=== PATIENT | male | born 1955 | race Caucasian/White ===

== ENCOUNTER → 2017-12-18 15:22 | Outpatient (CLI) | payer OTHER, SELFPAY | PROVIDERS: Visit Provider Physician Assistant | DX: R21 Rash and other nonspecific skin eruption (principal) | CPT/HCPCS: 87220 ==

== ENCOUNTER → 2018-01-23 17:41 | Outpatient (REF) | payer OTHER, SELFPAY | LOC: LAB 17:41 | PROVIDERS: Visit Provider Dermatology | DX: L24.9 Irritant contact dermatitis, unspecified cause (principal) | CPT/HCPCS: 87070; 87075; 87147; 87205 ==

== ENCOUNTER 2018-02-25 07:55 | Emergency (ER) | payer OTHER, SELFPAY ==
[2018-02-25] MEDS: SODIUM CHLORIDE 0.9% 1,000 ML 1000 ML IV (08:00)
[2018-02-25 08:04] VITALS: BP 159/85; PULSE 105; RESP 22; TEMP 36.4; O2SAT 97; BMI 25.3
[2018-02-25 08:23] LABS: Add Manual Diff / Slide Review NO; Basophils Absolute Auto 0 /uL (0-100); Basophils Percent Auto 0.6 % (0-2); Eosinophils Absolute Auto 100 /uL (0-450); Eosinophils Percent Auto 1.4 % (2-4); Hematocrit 46.3 % (41-53); Hemoglobin 16.2 g/dL (13.5-17.5); Lymphocytes Absolute Auto 1700 /uL (1100-4500); Mean Corpuscular HGB Conc 35.1 % (30-36); Mean Corpuscular Hemoglobin 33.2 PG (26-34); Mean Corpuscular Volume 94.8 fL (80-100); Monocytes Absolute Auto 700 /uL (0-900); Monocytes Percent Auto 9.4 % (3-14); Neutrophils Absolute Auto 4800 /uL (1500-7000); Neutrophils Percent Auto 65.6 % (50-75); Platelet Count 137 X10^3/uL (150-400); Red Blood Cell Count 4.88 X10^6/uL (4.5-5.9); Red Cell Distribution Width 13.6 % (11.6-14.8); White Blood Cell Count 7.3 X10^3/uL (4.5-11.0)
[2018-02-25 08:35] LABS: Alanine Aminotransferase 59 IU/L (21-72); Albumin 4.4 g/dL (3.5-5.0); Albumin Globulin Ratio 1.4 (1.0-2.8); Alkaline Phosphatase 103 U/L (38-126); Aspartate Aminotransferase 119 IU/L (17-59); BUN Creatinine Ratio 4.3 (6-22); Bilirubin Total 1.4 mg/dL (0.2-1.3); Blood Urea Nitrogen 3 mg/dL (9-20); Calcium 8.9 mg/dL (8.4-10.2); Carbon Dioxide 22 mmol/L (22-32); Chloride 93 mmol/L (98-107); Estimated Glomerular Filt Rate > 60.0 mL/min (>60); Globulin 3.1 g/dL (1.7-4.1); Glucose 87 mg/dL (80-110); HEMOLYSIS < 15 (0-50); Potassium 3.6 mmol/L (3.4-5.1); Sodium 129 mmol/L (137-145); Total Protein 7.5 g/dL (6.3-8.2)
[2018-02-25 08:36] LABS: C-Reactive Protein Quant < 0.5 mg/dL (<1.0)
--- NOTE | 2018-02-25 08:37 | ED.SKABFB ---
HPI - Skin/Abscess/Foreign Bdy General Chief complaint: Skin/Abscess/Foreign Body Stated complaint: RASH upper body Time Seen by Provider: 02/25/18 08:04 Source: patient Mode of arrival: ambulatory Limitations: no limitations History of Present Illness HPI narrative: Patient complains of a scaly, red, burning rash since early December. He states that it started in his genital area, and despite antifungal and other home treatments, the symptoms did not resolve. At that point, he was seen in Urgent Care. He was prescribed prednisone, which did help temporarily, but rash came back after the course had been finished. Patient states he was then seen by the Dermatology PA, who, he says, did not give him a specific diagnosis as to what was causing his rash. He was placed on prednisone again, but continued to have the rash. Patient states that several days ago, he began to notice the same sort of rash on his face, but in the last day, the rash has spread to his neck, chest, upper extremities and torso. He states that he had been abusing alcohol and stop drinking beer yesterday, over concern that his liver may be the cause of his skin issues. He states he does not feel as though he is withdrawing from alcohol, but is feeling shaky and anxious over what could be going on. Patient denies fevers. He denies other systemic symptoms, such as chest pain, shortness of breath, abdominal pain, nausea, or vomiting. No jaundice or icterus. Patient denies any new medications recently or at the onset of symptoms, other than the prednisone and creams he was trying for the rash. He denies any personal or family history of autoimmune disorders. No history of eczema. He states he has had hives twice. The patient traveled to [facility] shortly after the rash started, and was not exposed to anything else that he knows of. Patient states that the rash danielson, especially when he applies any sort of cream or lotion. Related Data Previous Rx's Medication Instructions Recorded tadalafil [Cialis] 20 mg PO PRN #30 tab 08/01/16 tadalafil 20 mg tablet 20 mg PO DAILY PRN #30 tab 12/18/17 prednisone See Label Instructions PO PER PKG 02/25/18 DIR #21 each Allergies Allergy/AdvReac Type Severity Reaction Status Date / Time No Known Drug Allergies Allergy Verified 02/25/18 08:04 Review of Systems Constitutional Denies chills, Denies fever(s), Denies lethargy and Denies weakness Eyes Denies change in vision, Denies eye discharge, Denies irritation and Denies loss of vision ENT Ears, Nose, Mouth, and Throat: Denies change in voice, Denies neck pain and Denies sore throat Cardiovascular Denies chest pain, Denies irregular heart rhythm, Denies lightheadedness, Denies palpitations, Denies dyspnea, Denies dyspnea on exertion and Denies orthopnea Respiratory Denies cough, Denies dyspnea, Denies dyspnea on exertion and Denies wheezing Gastrointestinal Gastrointestinal: Denies abdominal pain, Denies change in bowel habits, Denies diarrhea, Denies nausea and Denies vomiting Genitourinary Denies hematuria, Denies flank pain, Denies urinary incontinence and Denies urinary urgency Musculoskeletal Denies neck pain Integumentary/Breasts Reports pruritus, Reports erythema, Reports rash and Denies wounds Neurologic Denies confusion, Denies loss of vision and Denies weakness Psychiatric Denies anxiety, Denies confusion, Denies depression, Denies homicidal ideation and Denies suicidal ideation Endocrine Denies palpitations Hematologic/Lymphatic Denies easy bruising Allergic/Immunologic Denies wheezing PFSH Medical History Rash and nonspecific skin eruption (Acute) Petechiae (Acute) Multiple actinic keratoses (Acute 02/18/15) Erectile dysfunction (02/18/15) Pure hypercholesterolemia (04/29/15) History of colonic polyps (04/29/15) Surgical History No pertinent past surgical history (Acute) Social History Smoking Status: Never smoker alcohol intake: former Exam Initial Vital Signs Initial Vital Signs: Vital Signs Temperature 97.5 F L 02/25/18 08:04 Pulse Rate 105 H 02/25/18 08:04 Respiratory Rate 22 02/25/18 08:04 Blood Pressure 159/85 H 02/25/18 08:04 Pulse Oximetry 97 02/25/18 08:04 Const General: cooperative and well developed Nutritional Appearance: well nourished Orientation: alert, awake, oriented x3 and not confused [facility] Head: normocephalic and atraumatic Ears: external ears normal Nose: external nose normal and No nasal discharge Face and sinus: face symmetric and No dry mucous membranes Mouth: oral mucosae normal and moist mucous membranes Teeth and gingiva: dentition normal Eyes General: appearance normal, both eyes and all related structures Eyelids: eyelids normal Conjunctivae: conjunctivae normal Sclera: sclerae normal Pupils: PERRL EOM: EOM intact bilaterally Neck Neck: normal visual inspection, trachea midline, No lymphadenopathy, No midline deformity and No JVD Lymphatic: No lymphedema Chest Chest: normal inspection of the chest Resp Effort & Inspection: normal respiratory effort, able to speak in complete sentences, no respiratory distress and no use of accessory muscles Auscultation: clear to auscultation bilaterally, no rales, no rhonchi and no wheezes Cardio Rate: regular rate Rhythm: regular rhythm Heart Sounds: no click, no gallops, no murmurs and no rubs Pulses: normal peripheral pulses GI Inspection: non-distended Palpation: soft, no hepatosplenomegaly, No guarding, No pulsatile mass and No tender Back/Spine/Pelvis Back: No CVA tenderness Cervical Spine: cervical ROM normal and No pain with cervical ROM Thoracic/Lumbar Spine: thoracic and lumbar spine normal to inspection Skin General: no rashes or lesions noted, No jaundice and No petechiae Other: The patient has diffuse erythema over his chest and neck, with erythematous patches on his upper arms and his forehead and face. Multiple scaling lesions are noted with general flaking, dry skin over the patient's chest. No pustules or vesicles are noted. No silvery white plaques. No open wounds. No urticaria. Neuro General: alert, oriented x3, gait normal and no focal motor deficits Speech: speech normal Extrem General: full ROM, no clubbing, cyanosis or edema, no pedal edema and no calf tenderness Psych Appearance: well kempt Mental Status: mental status grossly normal Attitude: cooperative Thought Content: normal and suicidality Judgment: judgment good Course Course Narrative: I reviewed the patient's records, and found the patient had an existing, recently entered diagnosis of actinic keratoses. I did give the patient a an information sheet on this from up-to-date, because it did in many ways fit the patient's history and findings, and patient did not recall having been ever given this diagnosis rule out this course of symptoms. Patient did note that he had had a couple of lesions frozen on his head and believes this may have been actinic keratoses, as well. Patient's laboratory studies were generally unremarkable. His bilirubin was very slightly elevated, and his AST continues to be elevated slightly higher today than previously. At this point in time, I have encouraged the patient to follow up with his primary doctor, as well as with dermatology, to try to get to the bottom of what is going on and to determine the best treatment modality. Patient states that although the prednisone did not get rid of the symptoms and lasting way, it was helpful and he would like to try another course. I have prescribed him a prednisone taper. Patient has already made contact with Dr. Jolly, and will be following up with him for primary care. Orders Ordered: Discontinued Medications Sodium Chloride (Normal Saline 0.9%) 1,000 mls @ 1,000 mls/hr IV BOLUS ONE Stop: 02/25/18 09:03 Last Infusion: 02/25/18 09:17 Dose: 0 mls/hr Admin: 02/25/18 08:00 Dose: 1,000 mls/hr Prednisone (Deltasone) 40 mg PO NOW ONE Stop: 02/25/18 09:05 Last Admin: 02/25/18 09:17 Dose: 40 mg Vital Signs - 8 hr 02/25/18 08:04 Temperature 97.5 F L Pulse Rate 105 H Respiratory Rate 22 Blood Pressure 159/85 H Pulse Oximetry 97 MDM - Skin/Abscess/Foreign Bdy Medical Records Attestation: I reviewed the patient's medical records. Lab Data Attestation: I reviewed the patient's lab results. Result diagrams: 02/25/18 08:15 02/25/18 08:15 Lab Results 02/25/18 02/25/18 Range/Units 08:15 08:15 WBC 7.3 (4.5-11.0) X10^3/uL RBC 4.88 (4.5-5.9) X10^6/uL Hgb 16.2 (13.5-17.5) g/dL Hct 46.3 (41-53) % MCV 94.8 (80-100) fL MCH 33.2 (26-34) PG MCHC 35.1 (30-36) % RDW 13.6 (11.6-14.8) % Plt Count 137 L (150-400) X10^3/uL Neut % (Auto) 65.6 (50-75) % Lymph % (Auto) 23.0 L (25-40) % Cache % (Auto) 9.4 (3-14) % Eos % (Auto) 1.4 L (2-4) % Baso % (Auto) 0.6 (0-2) % Neut # (Auto) 4800 (9147-1865) /uL Lymph # (Auto) 1700 (3787-8684) /uL Cache # (Auto) 700 (0-900) /uL Eos # (Auto) 100 (0-450) /uL Baso # (Auto) 0 (0-100) /uL ESR 4 (0-15) MM/HR Sodium 129 L (137-145) mmol/L Potassium 3.6 (3.4-5.1) mmol/L Chloride 93 L (98-107) mmol/L Carbon Dioxide 22 (22-32) mmol/L BUN 3 L (9-20) mg/dL Creatinine 0.70 (0.66-1.25) mg/dL Estimated GFR > 60.0 (>60) mL/min BUN/Creatinine Ratio 4.3 L (6-22) Glucose 87 (80-110) mg/dL Calcium 8.9 (8.4-10.2) mg/dL Total Bilirubin 1.4 H (0.2-1.3) mg/dL AST 119 H (17-59) IU/L ALT 59 (21-72) IU/L Alkaline Phosphatase 103 (38-126) U/L C-Reactive Protein < 0.5 (<1.0) mg/dL Total Protein 7.5 (6.3-8.2) g/dL Albumin 4.4 (3.5-5.0) g/dL Globulin 3.1 (1.7-4.1) g/dL Albumin/Globulin Ratio 1.4 (1.0-2.8) Discharge Plan Departure Patient Disposition: Home Clinical Impression: Multiple actinic keratoses, Dermatitis Discharge Date/Time: 02/25/18 09:29 Interventions: ED Discharge Assessment Last Done: 02/25/18 09:28 Instructions: DI for Rash, DI for Actinic Keratosis Activity Restrictions/Additional Instructions: Some of your liver labs are mildly abnormal. Otherwise, your blood work is unremarkable. It is very important that you have continued follow-up with Dermatology and Internal Medicine to get to the bottom of the underlying cause of your rash. You have previously been diagnosed with multiple actinic keratoses, and a confluence of these may be responsible for your symptoms now. As these can put you at risk for squamous cell carcinoma, it is important that you follow closely with your doctors to treat this condition. Prescriptions: New prednisone 10 mg tablets,dose pack See Label Instructions PO PER PKG DIR Qty: 21 RF: 0 No Action tadalafil 20 mg tablet 20 mg PO DAILY PRN (Reason: sexual activity) Qty: 30 RF: 0 tadalafil [Cialis] 20 MG tablet 20 mg PO PRN Qty: 30 RF: 10 Referrals: Solo Jolly MD [Physician] -
--- NOTE | 2018-02-25 08:38 | PC.NURSE ---
All over body rash, erythema dry flakey skin, pt has been on a series of prednisone taper and seen by the [facility]. pt denies shortness of breath.
[2018-02-25 08:44] LABS: Erythrocyte Sedimentation Rate 4 MM/HR (0-15)
[2018-02-25] MEDS: predniSONE 20 MG TABLET 40 MG PO (09:17)
[2018-02-25 09:27] VITALS: BP 149/78; PULSE 85; RESP 20; O2SAT 97
== END 2018-02-25 09:29 | disposition home or self-care (01) ==
PROVIDERS: Emergency Provider Emergency Medicine
DX: L57.0 Actinic keratosis (principal); L30.9 Dermatitis, unspecified
CPT/HCPCS: 36591; 80053; 85025; 85651; 86140; 96360; 99283; 99284

== ENCOUNTER → 2018-02-27 18:08 | Outpatient (REF) | payer OTHER, SELFPAY | LOC: LAB 18:08 | PROVIDERS: PCP Internal Medicine; Visit Provider Physician Assistant | DX: L29.8 Other pruritus (principal) | CPT/HCPCS: 87070; 87075; 87205 ==

== ENCOUNTER → 2018-03-08 07:04 | Outpatient (CLI) | payer OTHER, SELFPAY ==
[2018-03-08 09:20] LABS: Add Manual Diff / Slide Review NO; Basophils Absolute Auto 100 /uL (0-100); Basophils Percent Auto 0.8 % (0-2); Eosinophils Absolute Auto 100 /uL (0-450); Eosinophils Percent Auto 0.8 % (2-4); Hemoglobin 16.1 g/dL (13.5-17.5); Lymphocytes Absolute Auto 1700 /uL (1100-4500); Lymphocytes Percent Auto 15.9 % (25-40); Mean Corpuscular Hemoglobin 33.8 PG (26-34); Mean Corpuscular Volume 96.5 fL (80-100); Monocytes Absolute Auto 1300 /uL (0-900); Monocytes Percent Auto 12.1 % (3-14); Neutrophils Absolute Auto 7700 /uL (1500-7000); Neutrophils Percent Auto 70.4 % (50-75); Platelet Count 252 X10^3/uL (150-400); Red Blood Cell Count 4.77 X10^6/uL (4.5-5.9); Red Cell Distribution Width 14.2 % (11.6-14.8); White Blood Cell Count 10.9 X10^3/uL (4.5-11.0)
[2018-03-08 10:06] LABS: Alanine Aminotransferase 220 IU/L (21-72); Albumin 4.2 g/dL (3.5-5.0); Albumin Globulin Ratio 1.4 (1.0-2.8); Alkaline Phosphatase 99 U/L (38-126); Aspartate Aminotransferase 208 IU/L (17-59); BUN Creatinine Ratio 12.9 (6-22); Bilirubin Total 1.1 mg/dL (0.2-1.3); Blood Urea Nitrogen 9 mg/dL (9-20); Calcium 9.4 mg/dL (8.4-10.2); Carbon Dioxide 25 mmol/L (22-32); Chloride 90 mmol/L (98-107); Estimated Glomerular Filt Rate > 60.0 mL/min (>60); Glucose 119 mg/dL (80-110); HEMOLYSIS < 15 (0-50); Potassium 3.5 mmol/L (3.4-5.1); Sodium 129 mmol/L (137-145); Total Protein 7.2 g/dL (6.3-8.2)
[2018-03-08 10:07] LABS: Free T3, Triiodothyronine Free 5.05 pg/mL (2.77-5.27); Free T4, Direct Thyroxine 1.25 ng/dL (0.78-2.19)
[2018-03-08 10:14] LABS: Hepatitis B Surface Antigen NEGATIVE s/c (NEGATIVE)
[2018-03-08 10:21] LABS: Thyroid Stimulating Hormone 1.07 uIU/mL (0.47-4.68)
[2018-03-08 10:40] LABS: HIV 1 and 2 Antibody NEGATIVE (NEGATIVE); Hep C Virus Ab w/Reflex Quant NEGATIVE s/c (NEGATIVE)
[2018-03-09 16:51] LABS: Zinc 70 mcg/dL (60-130)
[2018-03-10 14:11] LABS: ANA Screen, IFA Negative (Negative)
[2018-03-10 19:24] LABS: Triiodothyronine T3 Total 121 ng/dL (76-181)
[2018-03-13 14:39] LABS: Hepatitis B Core Antibody Nonreactive (Nonreactive)
== END ==
PROVIDERS: PCP Internal Medicine; Visit Provider Physician Assistant
DX: L20.84 Intrinsic (allergic) eczema (principal)
CPT/HCPCS: 36415; 80053; 83516; 84439; 84443; 84480; 84481; 84630; 85025; 86038; 86703; 86704; 86803; 87340

== ENCOUNTER → 2018-03-18 09:20 | Outpatient (CLI) | payer OTHER, SELFPAY ==
--- NOTE | 2018-03-18 09:21 | DI.RAD.S_ITS ---
PROCEDURE: XR CHEST 2V INDICATIONS: cough TECHNIQUE: 2 views of the chest were acquired. COMPARISON: [facility], , CHEST 2 VIEW, 05/06/2008, 13:17. FINDINGS: Surgical changes and devices: None. Lungs and pleura: Lungs are clear. No pleural effusions or pneumothorax. Mediastinum: Mediastinal contours are normal. Heart size is normal. Bones and chest wall: No suspicious bony abnormalities. Soft tissues appear unremarkable. IMPRESSION: No acute cardiopulmonary findings. Dictated by: Tigist Scott M.D. on 03/18/2018 at 9:43 Approved by: Tigist Scott M.D. on 03/18/2018 at 9:44
== END ==
PROVIDERS: PCP Internal Medicine; Visit Provider Internal Medicine
DX: R05 Cough (principal)
CPT/HCPCS: 71046

== ENCOUNTER 2018-04-06 12:24 | Emergency (ER) | payer OTHER, SELFPAY ==
[2018-04-06 12:25] VITALS: BP 166/96; PULSE 88; RESP 14; TEMP 37.1; O2SAT 97
--- NOTE | 2018-04-06 12:41 | ED.SKABFB ---
HPI - Skin/Abscess/Foreign Bdy General Chief complaint: Skin/Abscess/Foreign Body Stated complaint: RASH Time Seen by Provider: 04/06/18 12:41 Source: patient Mode of arrival: ambulatory Limitations: no limitations History of Present Illness HPI narrative: The patient has a rash that started December 2017. Original rash was in his cross, thought to be jock itch. He has been treated with antifungal creams. He has most recently on ketoconazole. He has had the rash persist, currently on his penis and is perianal area. He also has rash in the axillae bilaterally and on his chest. In addition to the initial medications, he has been to a chief passenger ship steward/stewardess. Punch biopsies were conducted on his left arm and chest, no diagnosis were made. No skin scrapings were taken. He has also been on antibiotics, including Levaquin for sinusitis. He has been on multiple courses of steroids. Steroids seemed calmer the rash, he has most recently been off the steroids for about 9 days. He now has a flare-up of the rash as described above plus itching. He is having no fever or chills. He has erythema, and itching. He has no purulent discharge. The patient takes testosterone injections about every 2 weeks. He has been on testosterone for 1 year. He has no side effects to the testosterone previously. He has no history of medication reactions. He has a history consistent with fatty liver, the LFTs were recently elevated. He has recently been on multiple medications for the rash, including ketoconazole. Related Data Home Medications Medication Instructions Recorded Confirmed testosterone cypionate 200 mg/mL 200 mg IM QWEEK 03/15/18 03/18/18 intramuscular oil Previous Rx's Medication Instructions Recorded tadalafil 20 mg tablet 20 mg PO DAILY PRN #30 tab 12/18/17 prednisone See Rx Instructions PO PER PKG DIR 02/25/18 #21 each levofloxacin 750 mg tablet 750 mg PO DAILY #10 tab 03/18/18 prednisone 60 mg PO DAILY 5 Days #15 tab 04/06/18 Allergies Allergy/AdvReac Type Severity Reaction Status Date / Time No Known Drug Allergies Allergy Verified 04/06/18 12:36 Review of Systems Review of Systems ROS Unobtainable: All systems reviewed & are unremarkable except as noted in HPI and below Constitutional Denies chills and Denies fever(s) Eyes Denies change in vision, Denies eye discharge, Denies irritation and Denies loss of vision ENT Ears, Nose, Mouth, and Throat: Denies change in voice, Denies neck pain and Denies sore throat Cardiovascular Denies chest pain Respiratory Denies cough Gastrointestinal Gastrointestinal: Denies abdominal pain and Denies nausea Musculoskeletal Denies back pain, Denies myalgias and Denies neck pain Integumentary/Breasts Reports as per HPI, Denies pruritus, Denies erythema and Denies rash Neurologic Denies loss of vision Endocrine Reports other (No diabetes) [facility] Medical History Fatty liver (Chronic) Abnormal LFTs (Chronic) Multiple actinic keratoses (Inactive 02/18/15) Erectile dysfunction (Chronic 02/18/15) Pure hypercholesterolemia (Chronic 04/29/15) History of colonic polyps (Inactive 04/29/15) Petechiae (Resolved) Social History Smoking Status: Former smoker alcohol intake: former Social History Smoking Status: Former smoker alcohol intake: former Exam Initial Vital Signs Initial Vital Signs: Vital Signs Temperature 98.7 F 04/06/18 12:25 Pulse Rate 88 04/06/18 12:25 Respiratory Rate 14 04/06/18 12:25 Blood Pressure 166/96 H 04/06/18 12:25 Pulse Oximetry 97 04/06/18 12:25 Const General: cooperative and well developed Nutritional Appearance: well nourished Orientation: alert, awake and oriented x3 HENMT Head: normocephalic and atraumatic Mouth: oral mucosae normal and moist mucous membranes Throat: tonsils normal and uvula midline Eyes Conjunctivae: conjunctivae normal Resp Effort & Inspection: normal respiratory effort, able to speak in complete sentences, no respiratory distress and no use of accessory muscles Auscultation: clear to auscultation bilaterally, no rales, no rhonchi and no wheezes Cardio Rate: regular rate Rhythm: regular rhythm Heart Sounds: S1 normal, S2 normal, no click, no gallops, no murmurs and no rubs Pulses: normal peripheral pulses Skin General: erythema (Chest, axilla, genitalia and perianal area.), No warm and other (Macular in nature.) Course Orders Ordered: ED Orders 04/06/18 13:20 C-Reactive Protein Quant Stat Complete Blood Count AUTO DIFF Stat Comprehensive Metabolic Panel Stat Erythrocyte Sedimentation Rate Stat Vital Signs - 8 hr 04/06/18 12:25 Temperature 98.7 F Pulse Rate 88 Respiratory Rate 14 Blood Pressure 166/96 H Pulse Oximetry 97 MDM - Skin/Abscess/Foreign Bdy Lab Data Result diagrams: 04/06/18 13:20 04/06/18 13:20 Lab Results 04/06/18 04/06/18 04/06/18 Range/Units 13:20 13:20 13:20 WBC 7.9 (4.5-11.0) X10^3/uL RBC 4.83 (4.5-5.9) X10^6/uL Hgb 16.2 (13.5-17.5) g/dL Hct 46.5 (41-53) % MCV 96.3 (80-100) fL MCH 33.6 (26-34) PG MCHC 34.9 (30-36) % RDW 13.8 (11.6-14.8) % Plt Count 166 (150-400) X10^3/uL Neut % (Auto) 67.3 (50-75) % Lymph % (Auto) 19.8 L (25-40) % Gilchrist % (Auto) 9.9 (3-14) % Eos % (Auto) 2.1 (2-4) % Baso % (Auto) 0.9 (0-2) % Neut # (Auto) 5300 (5034-8651) /uL Lymph # (Auto) 1600 (3302-9249) /uL Gilchrist # (Auto) 800 (0-900) /uL Eos # (Auto) 200 (0-450) /uL Baso # (Auto) 100 (0-100) /uL ESR 1 (0-15) MM/HR Sodium 131 L (137-145) mmol/L Potassium 4.5 (3.4-5.1) mmol/L Chloride 91 L (98-107) mmol/L Carbon Dioxide 28 (22-32) mmol/L BUN 4 L (9-20) mg/dL Creatinine 0.80 (0.66-1.25) mg/dL Estimated GFR > 60.0 (>60) mL/min BUN/Creatinine Ratio 5.0 L (6-22) Glucose 83 (80-110) mg/dL Calcium 9.7 (8.4-10.2) mg/dL Total Bilirubin 1.7 H (0.2-1.3) mg/dL AST 83 H (17-59) IU/L ALT 60 (21-72) IU/L Alkaline Phosphatase 97 (38-126) U/L C-Reactive Protein 0.7 (<1.0) mg/dL Total Protein 8.1 (6.3-8.2) g/dL Albumin 4.7 (3.5-5.0) g/dL Globulin 3.4 (1.7-4.1) g/dL Albumin/Globulin Ratio 1.4 (1.0-2.8) MDM Narrative Medical decision making narrative: I suggested to the patient that drug reaction needs to be considered with his ongoing rash. However, it sounds as if this rash started as jock itch. He is currently needing steroids due to the amount of itching he has. I am asking him to bathe regularly and use antifungal creams daily. I understand he is following up with his PCM, Dr. Jolly, this coming week. I have encouraged the patient to discuss a dermatology consult with Dr. Jolly. I also suggested he had void the testosterone injections until the rash is resolved, or at least better understood. Discharge Plan Departure Patient Disposition: Home Clinical Impression: Tinea cruris AD (atopic dermatitis) Qualifiers: Atopic dermatitis type: unspecified Qualified Code(s): L20.9 - Atopic dermatitis, unspecified Discharge Date/Time: 04/06/18 15:00 Instructions: DI for Atopic Dermatitis - Adult Activity Restrictions/Additional Instructions: The rash initiated with features most suggestive of tinea cruris Jock itch) but has now spread. Prednisone 60 milligrams daily for 5 days. Lotrimin Ultra (OTC), apply to the affected area daily for 2 weeks. You may continue the Lotrimin longer if you seem to be healing. Stop taking the testosterone injections. Follow up with her men's health doctor to see if this is a potential reaction to the testosterone. As you are continuing the treatment with Lotrimin, try to avoid further use of the prednisone. I would recommend daily bathing with warm water and Epsom salts. Follow up with her doctor in about 1 week to re-evaluate the situation. Prescriptions: New prednisone 20 mg tablet 60 mg PO DAILY 5 Days Qty: 15 RF: 0 No Action tadalafil 20 mg tablet 20 mg PO DAILY PRN (Reason: sexual activity) Qty: 30 RF: 0 testosterone cypionate [Depo-Testosterone] 200 mg/mL oil 200 mg IM QWEEK RF: 0 levofloxacin [Levaquin] 750 mg tablet 750 mg PO DAILY Qty: 10 RF: 0 prednisone 10 mg tablets,dose pack See Rx Instructions PO PER PKG DIR Qty: 21 RF: 0 Referrals: Solo Jolly MD [Primary Care Provider] -
[2018-04-06 13:36] LABS: Add Manual Diff / Slide Review NO; Basophils Absolute Auto 100 /uL (0-100); Basophils Percent Auto 0.9 % (0-2); Eosinophils Absolute Auto 200 /uL (0-450); Eosinophils Percent Auto 2.1 % (2-4); Hematocrit 46.5 % (41-53); Hemoglobin 16.2 g/dL (13.5-17.5); Lymphocytes Absolute Auto 1600 /uL (1100-4500); Lymphocytes Percent Auto 19.8 % (25-40); Mean Corpuscular HGB Conc 34.9 % (30-36); Mean Corpuscular Hemoglobin 33.6 PG (26-34); Mean Corpuscular Volume 96.3 fL (80-100); Monocytes Absolute Auto 800 /uL (0-900); Monocytes Percent Auto 9.9 % (3-14); Neutrophils Absolute Auto 5300 /uL (1500-7000); Neutrophils Percent Auto 67.3 % (50-75); Platelet Count 166 X10^3/uL (150-400); Red Blood Cell Count 4.83 X10^6/uL (4.5-5.9); Red Cell Distribution Width 13.8 % (11.6-14.8); White Blood Cell Count 7.9 X10^3/uL (4.5-11.0)
[2018-04-06 14:04] LABS: Erythrocyte Sedimentation Rate 1 MM/HR (0-15)
[2018-04-06 14:18] LABS: Alanine Aminotransferase 60 IU/L (21-72); Albumin 4.7 g/dL (3.5-5.0); Albumin Globulin Ratio 1.4 (1.0-2.8); Alkaline Phosphatase 97 U/L (38-126); Aspartate Aminotransferase 83 IU/L (17-59); Bilirubin Total 1.7 mg/dL (0.2-1.3); Blood Urea Nitrogen 4 mg/dL (9-20); Calcium 9.7 mg/dL (8.4-10.2); Carbon Dioxide 28 mmol/L (22-32); Chloride 91 mmol/L (98-107); Estimated Glomerular Filt Rate > 60.0 mL/min (>60); Globulin 3.4 g/dL (1.7-4.1); Glucose 83 mg/dL (80-110); HEMOLYSIS < 15 (0-50); Potassium 4.5 mmol/L (3.4-5.1); Sodium 131 mmol/L (137-145); Total Protein 8.1 g/dL (6.3-8.2)
[2018-04-06 14:20] LABS: C-Reactive Protein Quant 0.7 mg/dL (<1.0)
[2018-04-06 14:51] VITALS: BP 163/85; PULSE 81; RESP 18; O2SAT 99
== END 2018-04-06 15:00 | disposition home or self-care (01) ==
PROVIDERS: Emergency Provider Emergency Medicine; PCP Internal Medicine
DX: B35.6 Tinea cruris (principal); L20.9 Atopic dermatitis, unspecified
CPT/HCPCS: 36415; 80053; 85025; 85651; 86140; 99282; 99283

== ENCOUNTER → 2018-10-11 06:55 | Outpatient (CLI) | payer OTHER, SELFPAY ==
[2018-10-11 08:19] LABS: Cholesterol 210 mg/dL (140-199); Triglycerides 100 mg/dL (35-150)
[2018-10-11 08:28] LABS: HDL Cholesterol 149 mg/dL (40-60); LDL Cholesterol Calculated 41 mg/dL (<100)
== END ==
PROVIDERS: PCP Internal Medicine; Visit Provider Internal Medicine
DX: Z13.6 Encounter for screening for cardiovascular disorders (principal)
CPT/HCPCS: 36415; 80061

== ENCOUNTER 2019-02-11 06:54 | Day surgery (SDC) | payer OTHER, SELFPAY ==
--- NOTE | 2019-02-11 | PATH_ITS ---
[facility] Accession Number: [id number] . 01 Material submitted: . PART A: cecum - CECAL POLYP BIOPSY PART B: colon - TRANSVERSE COLON POLYP BIOPSY . 02 Diagnosis: A. Cecum, Polyp, Biopsy: Tubular adenoma. . B. Transverse Colon, Polyp, Biopsy: Tubular adenoma. [facility] 02/12/2019 1422 Local . 02 Electronically signed: . Mayelin Montague MD, Pathologist NPI- [id number] . 01 Gross description: . Part A: CECAL POLYP BIOPSY: Received in formalin are multiple fragment(s) of rosas, soft tissue measuring 0.1 x 0.1 x 0.1 cm to 0.3 x 0.2 x 0.2 cm submitted entirely in 1 cassette(s) Part B: TRANSVERSE COLON POLYP BIOPSY: Received in formalin is 1 fragment(s) of rosas, soft tissue measuring 0.3 x 0.2 x 0.2 cm submitted entirely in 1 cassette(s) /[facility] 02/11/2019 1854 Local . 02 Pathologist provided ICD-10: D12.0, D12.3 . 02 CPT . 180361, [id number] Performed at: 01 [facility] [address], [place], [place] [id number] MD Cole Ventura MD Phone: [phone] Performed at: 02 [facility] [address] [place], [place] [id number] MD Mayelin Montague MD Phone: [phone]
[2019-02-11 07:50] VITALS: BP 155/92; PULSE 96; RESP 20; TEMP 36.2; O2SAT 100; BMI 24.4
[2019-02-11] MEDS: SODIUM CHLORIDE 0.9% 1,000 ML 200 ML IV (08:02)
--- NOTE | 2019-02-11 08:59 | PM.HP.1 ---
History of Present Illness History of Present Illness Date Patient Seen: 02/11/19 Time Patient Seen: 08:59 Chief complaint: [id number] Narrative: Patient is a gentleman here for screening colonoscopy. He has a history of polyps. Last colonoscopy was little over 5 years ago. Patient History Medical History Abnormal LFTs (Chronic) Chicken pox (Resolved) Erectile dysfunction (Chronic 02/18/15) Fatty liver (Chronic) History of colonic polyps (Inactive 04/29/15) Hypothyroidism (Chronic) Multiple actinic keratoses (Inactive 02/18/15) Petechiae (Resolved) Pure hypercholesterolemia (Chronic 04/29/15) Surgical History Anesthesia (Resolved) History of ankle surgery (Resolved) History of appendectomy (Resolved) History of hip surgery (Resolved) History of knee surgery (Resolved) Family & Social History Family History Mother Cancer Brother History of tonsillectomy Grandfather Cancer Grandmother Cancer Grandfather Cancer Grandmother Cancer Social History: household members spouse Tobacco & Substance use: Smoking Status Former smoker alcohol intake former alcohol intake frequency 0-2 drinks per day Substance Use Type does not use Meds Home Medications and Allergies Home Medications Medication Instructions Recorded Confirmed Type tadalafil 20 mg tablet 20 mg PO DAILY PRN #30 tab 12/18/17 02/11/19 Rx testosterone cypionate 200 mg/mL 200 mg IM QWEEK 03/15/18 02/11/19 History intramuscular oil Allergies Allergy/AdvReac Type Severity Reaction Status Date / Time No Known Drug Allergies Allergy Verified 02/11/19 07:48 Review of Systems Review of Systems ROS Unobtainable: All systems reviewed & are unremarkable except as noted in HPI and below Exam Vital Signs (past 8 hours): - 02/11/19 07:50 Temperature 97.1 F L Pulse Rate 96 H Respiratory Rate 20 Blood Pressure 155/92 H Pulse Oximetry 100 Oxygen Delivery Method Room Air Narrative Exam Narrative: Pleasant cooperative patient no apparent distress. Lungs are clear to auscultation. No rales or rhonchi. Heart regular rate and rhythm no murmur gallop. Abdomen is soft nontender without mass. No obvious hernias. Patient is alert and oriented x3. Assessment & Plan Assessment & Plan narrative: The patient for a screening colonoscopy. I have discussed the procedure with them. Risks of bleeding, perforation which would necessitate major operation, failure to find remove all lesions, the potential tattoo were all discussed. All questions were answered. They wished to proceed.
[2019-02-11] MEDS: fentaNYL 250 MCG/5 ML INJ IV (09:00)
[2019-02-11] MEDS: MIDAZOLAM 5 MG/5 ML VIAL IV (09:02)
[2019-02-11 09:41] VITALS: BP 127/73; PULSE 99; RESP 14; TEMP 36.9; O2SAT 97
--- NOTE | 2019-02-11 09:41 | PM.OP.ENDO ---
Operative Date/Time/Diagnoses Date of procedure: 02/11/19 Time of procedure: 09:41 Pre-op diagnosis: History of polyps Post-op diagnosis: same (Multiple small polyps. Sigmoid diverticulosis with tortuosity.) Procedure & Clinicians Study performed: Colonoscopy with cold biopsy Same procedure as scheduled: Yes Indications: Screening. Personal history of polyps. Last exam over 5 years ago. Surgeon: Jim Solorzano Procedure Notes SCOAP/Timeout: Perform Procedure in detail: The patient was placed in the left lateral decubitus position and underwent IV sedation directed by the surgeon consisting of fentanyl and Versed. Digital exam was unremarkable. No enlargement of the prostate.. The scope was inserted and advanced through the rectum into the sigmoid, descending, transverse, and ascending colon. Patient was noted to have sigmoid diverticulosis and some tortuosity. Pressure was applied and the cecum was reached identified by the ileocecal valve and the appendiceal opening. Two polyps which were small were noted in the cecum and were biopsied and removed. The scope was gradually brought out. Additional Polyps were found in the ascending and transverse colon. The scope ultimately was retroflexed in the rectum. The appearance was normal. The scope was removed and the patient tolerated the procedure well. Prep was good. Of note as I was removing the scope and passing through the sigmoid there was 1 area of inflammation that was draining white material in this may represent diverticulitis. Patient was asymptomatic however pre procedure. Scope withdrawal time: 10 minutes Sedation minutes: 36 Findings: diverticulosis (Sigmoid) and polyp (Multiple small) Specimen(s): other (Polyps) Complications: none Post-procedure Recommendations: Colonscopy in 5 years Follow up: as needed Disposition: PACU
[2019-02-11 09:46] VITALS: BP 113/70; PULSE 94; RESP 15; TEMP 36.9; O2SAT 96
[2019-02-11 09:52] VITALS: BP 115/79; PULSE 99; RESP 16; TEMP 36.9; O2SAT 99
--- NOTE | 2019-02-11 10:02 | PM.PREOP ---
Pre-operative Note Interval Note History & Physical reviewed/Exam performed by Physician: Yes Changes to H&P: No ASA Class (for procedural sedation): I
[2019-02-11 10:08] VITALS: BP 121/72; PULSE 89; RESP 12; TEMP 37.1; O2SAT 97
--- NOTE | 2019-02-11 10:16 | SUR.PHASEII ---
Spoke with who works at in the ED. Reviewed discharge orders with patient. Pt denies pain/nausea. Tolerating po. VSS.
--- NOTE | 2019-02-11 12:14 | SUR.PHASEII ---
Assumed care from gildardo Garcia instructions discussed by her with pt, Emeka arrived, read paperwork stated she did not need further discussion. Pt left when ready and left in stable condition, belly soft and no nausea.
== END 2019-02-11 10:30 | disposition home or self-care (01) ==
PROVIDERS: PCP Internal Medicine; Visit Provider Specialist
PROC: 0DJD8ZZ Inspection of Lower Intestinal Tract, Via Natural or Artificial Opening Endoscopic (ICD-10-PCS; CPT 45378; principal; 2019-02-11 08:45)
DX: Z12.11 Encounter for screening for malignant neoplasm of colon (principal); Z86.010 Personal history of colon polyps; E03.9 Hypothyroidism, unspecified; E78.5 Hyperlipidemia, unspecified; K57.30 Diverticulosis of large intestine without perforation or abscess without bleeding; D12.0 Benign neoplasm of cecum; D12.3 Benign neoplasm of transverse colon
CPT/HCPCS: 45380; 99152; 99153; J2250; J3010

== ENCOUNTER → 2019-12-17 10:38 | Outpatient (CLI) | payer OTHER, SELFPAY ==
[2019-12-17 12:26] LABS: COVID19 -Nasal RAPID Negative (Negative)
== END ==
PROVIDERS: PCP Internal Medicine; Visit Provider Physician Assistant
DX: Z03.818 Encounter for observation for suspected exposure to other biological agents ruled out (principal)
CPT/HCPCS: 87635

== ENCOUNTER → 2020-02-13 12:09 | Outpatient (CLI) | payer OTHER, SELFPAY ==
[2020-02-13] MEDS: COVID-19 VACC(MODERNA-1)/PF 100 MCG/0.5 ML VIAL IM (12:16)
== END ==
PROVIDERS: PCP Internal Medicine; Visit Provider Internal Medicine
DX: Z23 Encounter for immunization (principal)
CPT/HCPCS: 0011A; 91301

== ENCOUNTER → 2020-03-11 08:53 | Outpatient (CLI) | payer OTHER, SELFPAY ==
[2020-03-11] MEDS: COVID-19 VACC #2, MRNA(MOD) 100 MCG/0.5 ML VIAL IM (09:00)
== END ==
PROVIDERS: PCP Internal Medicine; Visit Provider Internal Medicine
DX: Z23 Encounter for immunization (principal)
CPT/HCPCS: 0012A; 91301

== ENCOUNTER → 2020-07-19 07:08 | Outpatient (CLI) | payer OTHER, SELFPAY ==
[2020-07-19 08:18] LABS: Hematocrit 46.4 % (41-53); Hemoglobin 16.3 g/dL (13.5-17.5); Mean Corpuscular HGB Conc 35.1 % (30-36); Mean Corpuscular Hemoglobin 29.7 PG (26-34); Mean Corpuscular Volume 84.7 fL (80-100); Platelet Count 226 X10^3/uL (150-400); Red Blood Cell Count 5.48 X10^6/uL (4.5-5.9); Red Cell Distribution Width 14.2 % (11.6-14.8); White Blood Cell Count 6.9 X10^3/uL (4.5-11.0)
[2020-07-19 08:38] LABS: Alanine Aminotransferase 15 IU/L (<50); Albumin 4.3 g/dL (3.5-5.0); Albumin Globulin Ratio 1.5 (1.0-2.8); Alkaline Phosphatase 71 U/L (38-126); Aspartate Aminotransferase 24 IU/L (17-59); BUN Creatinine Ratio 5.5 (6-22); Bilirubin Total 0.8 mg/dL (0.2-1.3); Blood Urea Nitrogen 5 mg/dL (9-20); Calcium 9.9 mg/dL (8.4-10.2); Carbon Dioxide 26 mmol/L (22-32); Chloride 96 mmol/L (98-107); Cholesterol 215 mg/dL (140-199); Estimated Glomerular Filt Rate > 60.0 mL/min (>60); Globulin 2.8 g/dL (1.7-4.1); Glucose 88 mg/dL (80-110); HDL Cholesterol 62 mg/dL (40-60); HEMOLYSIS < 15 (0-50); LDL Cholesterol Calculated 132 mg/dL (<100); Potassium 4.4 mmol/L (3.4-5.1); Sodium 132 mmol/L (137-145); Total Protein 7.1 g/dL (6.3-8.2); Triglycerides 104 mg/dL (35-150)
[2020-07-19 09:08] LABS: Prostate Specific Antigen Scrn 0.665 ng/mL (0.1-4.0)
[2020-07-19 10:25] LABS: Neutrophils Absolute Manual 3864 /uL (3000-5900); Platelet Estimate Adequate on smear; RBC Morphology Normal Morphology; Total Cells Counted 100
== END ==
PROVIDERS: PCP Internal Medicine; Referring Provider Internal Medicine; Visit Provider Internal Medicine
DX: Z13.6 Encounter for screening for cardiovascular disorders (principal); Z12.5 Encounter for screening for malignant neoplasm of prostate; K76.0 Fatty (change of) liver, not elsewhere classified; R94.5 Abnormal results of liver function studies; E78.00 Pure hypercholesterolemia, unspecified
CPT/HCPCS: 36415; 80053; 80061; 85025; G0103

== ENCOUNTER → 2021-09-22 06:57 | Outpatient (CLI) | payer MEDICARE, SELFPAY ==
[2021-09-22 09:29] LABS: Alanine Aminotransferase 13 IU/L (<50); Albumin 4.6 g/dL (3.5-5.0); Albumin Globulin Ratio 1.6 (1.0-2.8); Alkaline Phosphatase 70 U/L (38-126); Aspartate Aminotransferase 20 IU/L (17-59); BUN Creatinine Ratio 15.1 (6-22); Bilirubin Total 0.7 mg/dL (0.2-1.3); Blood Urea Nitrogen 11 mg/dL (9-20); Calcium 9.2 mg/dL (8.4-10.2); Carbon Dioxide 28 mmol/L (22-32); Chloride 99 mmol/L (98-107); Cholesterol 177 mg/dL (140-199); Estimated Glomerular Filt Rate > 60 mL/min (>60); Globulin 2.9 g/dL (1.7-4.1); Glucose 85 mg/dL (80-110); HDL Cholesterol 53 mg/dL (40-60); HEMOLYSIS < 15 (0-50); LDL Cholesterol Calculated 108 mg/dL (<100); Potassium 4.3 mmol/L (3.4-5.1); Sodium 134 mmol/L (137-145); Total Protein 7.5 g/dL (6.3-8.2); Triglycerides 81 mg/dL (35-150)
[2021-09-22 09:58] LABS: Prostate Specific Antigen Scrn 0.682 ng/mL (0.1-4.0)
== END ==
PROVIDERS: PCP Internal Medicine; Referring Provider Internal Medicine; Visit Provider Internal Medicine
DX: E78.00 Pure hypercholesterolemia, unspecified (principal); R94.5 Abnormal results of liver function studies; Z12.5 Encounter for screening for malignant neoplasm of prostate
CPT/HCPCS: 36415; 80053; 80061; G0103

== ENCOUNTER → 2023-10-29 06:47 | Outpatient (CLI) | payer MEDICARE, SELFPAY ==
[2023-10-29 08:37] LABS: Alanine Aminotransferase 80 IU/L (<50); Albumin 3.9 g/dL (3.5-5.0); Albumin Globulin Ratio 1.3 (1.0-2.8); Alkaline Phosphatase 101 U/L (38-126); Aspartate Aminotransferase 83 IU/L (17-59); Bilirubin Total 0.5 mg/dL (0.2-1.3); Blood Urea Nitrogen 9 mg/dL (9-20); Calcium 9.2 mg/dL (8.4-10.2); Carbon Dioxide 30 mmol/L (22-32); Chloride 100 mmol/L (98-107); Cholesterol 167 mg/dL (140-199); Estimated Glomerular Filt Rate > 60 mL/min (>60); Globulin 2.9 g/dL (1.7-4.1); Glucose 86 mg/dL (80-110); HDL Cholesterol 88 mg/dL (40-60); HEMOLYSIS < 15 (0-50); LDL Cholesterol Calculated 48 mg/dL (<100); Potassium 4.3 mmol/L (3.4-5.1); Sodium 137 mmol/L (137-145); Total Protein 6.8 g/dL (6.3-8.2); Triglycerides 155 mg/dL (35-150)
[2023-10-29 09:04] LABS: Prostate Specific Antigen Scrn 0.877 ng/mL (0.1-4.0)
== END ==
PROVIDERS: PCP Internal Medicine; Referring Provider Internal Medicine; Visit Provider Internal Medicine
DX: E78.00 Pure hypercholesterolemia, unspecified (principal); Z12.5 Encounter for screening for malignant neoplasm of prostate; R94.5 Abnormal results of liver function studies
CPT/HCPCS: 36415; 80053; 80061; G0103

== ENCOUNTER → 2024-08-21 10:32 | Outpatient (CLI) | payer MEDICARE, SELFPAY ==
--- NOTE | 2024-08-21 10:35 | DI.MRI.S_ITS ---
PROCEDURE: MR LUMBAR SPINE WO CON INDICATIONS: LUMBAR RADICULOPATHY TECHNIQUE: Noncontrast sagittal T1 spin echo and T2 fast echo, sagittal STIR, and T2 fast spin echo through the lumbar spine. In cases with scoliosis, additional coronal T2 fast spin echo may be performed. COMPARISON: None. FINDINGS: Image quality: Excellent. Alignment and Curvature: There is [id number] dextroconvex curvature. There is no significant spondylolisthesis.. Bone Marrow: Prominent Modic type 1 reactive endplate changes at L5-S1 and type 1 and type 2 reactive endplate changes at L4-L5. Bone marrow signal abnormality seen. There is advanced disc desiccation and disc space narrowing at multiple levels. Spinal Cord: Conus medullaris terminates at the T12 level. Visualized cord demonstrates normal signal and size. Paraspinous Soft Tissues: No paravertebral masses. Severe atrophy of the right psoas muscle. T12-L1: No significant spinal stenosis. L1-L2: There is mild disc bulge, without spinal stenosis. L2-L3: There is disc bulge as well as mild bilateral facet arthropathy and ligamentum flavum thickening. There is mild central canal narrowing as well as mild left foraminal stenosis. L3-L4: There is disc bulge as well as bilateral mild facet arthropathy. There is mild central canal narrowing, without significant lateral spinal stenosis. L4-L5: There is also disc bulge as well as bilateral facet arthropathy. There is a annular fissure posteriorly measuring approximately 1.45 cm in length. There is mild central spinal stenosis as well as mild to moderate bilateral lateral recess and foraminal stenosis, slightly more on the right. L5-S1: There is disc bulge as well as bilateral facet arthropathy, with facet joint effusion. There is [id number]-er-[id number] bilateral lateral recess stenosis as well as at least moderate bilateral foraminal stenosis. IMPRESSION: 1. Multilevel degenerative changes as above, with mild central spinal stenosis at L3-S1 and bilateral lateral spinal stenosis seen especially at L5-S1. 2. No definite disc extrusion or acute osseous lesions seen. Dictated by: Darius Curry M.D. on 08/21/2024 at 16:11 Approved by: Darius Curry M.D. on 08/21/2024 at 16:19
== END ==
LOC: MRI 10:34
PROVIDERS: PCP Internal Medicine; Referring Provider Internal Medicine; Visit Provider Orthopaedic Surgery
DX: M47.26 Other spondylosis with radiculopathy, lumbar region (principal); M47.27 Other spondylosis with radiculopathy, lumbosacral region; M48.061 Spinal stenosis, lumbar region without neurogenic claudication; M48.07 Spinal stenosis, lumbosacral region; M51.16 Intervertebral disc disorders with radiculopathy, lumbar region; M51.17 Intervertebral disc disorders with radiculopathy, lumbosacral region
CPT/HCPCS: 72148